=== PATIENT | female | born 1975 | race Two or more races ===

== ENCOUNTER 2017-04-27 19:21 | Emergency (ER) | payer MEDICAID ==
[2017-04-27] MEDS ORDERED: Amoxicillin/Clavulanate K 875-125 MG Tab PO ONE (20:21)
--- NOTE | 2017-04-27 21:07 | EDM.PDOC ---
ED HPI GENERAL MEDICAL PROBLEM - General Chief Complaint: ENT Problem Stated Complaint: TOOTH PAIN Time Seen by Provider: 04/27/17 20:30 Source of Information: Reports: Patient History Limitations: Reports: No Limitations - History of Present Illness INITIAL COMMENTS - FREE TEXT/NARRATIVE: Patient is a 41 year old woman who has a broken left upper wisdom tooth that is abscessed and painful up into her left maxillary sinus. She will have a dental consult in 4 days but would like to be on an antibiotic to help with her infection and discomfort. No fever or chills and no other complaints. 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, NSAIDS Left Upper Tooth/Teeth Pain Score (Numeric/FACES): 10 - Related Data Allergies Allergy/AdvReac Type Severity Reaction Status Date / Time No Known Allergies Allergy Verified 04/27/17 19:40 Home Meds: Home Meds NK [No Known Home Meds] 04/27/17 [History] 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 ED EXAM, ENT - Physical Exam Exam: See Below Exam Limited By: No Limitations General Appearance: Alert, WD/WN, No Apparent Distress Eye Exam: Bilateral Eye: Normal Fundi, Normal Inspection Ears: Normal External Exam, Normal Canal, Hearing Grossly Normal, Normal TMs Nose: Normal Inspection, Normal Mucousa, No Blood Mouth/Throat: Dental Tenderness, Dental Trauma (Left upper wisdom tooth with pain radiating into the left maxillary sinus.) Head: Atraumatic, Sinus Tenderness (Left maxillary sinus on palpitation.) Neck: Normal Inspection, Supple, Non-Tender, Full Range of Motion Respiratory/Chest: No Respiratory Distress, Lungs Clear, Normal Breath Sounds, No Accessory Muscle Use, Chest Non-Tender Cardiovascular: Normal Peripheral Pulses, Regular Rate, Rhythm, No Edema, No Gallop, No JVD, No Murmur, No Rub GI/Abdominal: Normal Bowel Sounds, Soft, Non-Tender, No Organomegaly, No Distention, No Abnormal Bruit, No Mass Back: Normal Inspection, Full Range of Motion Extremities: Normal Inspection, Normal Range of Motion, Non-Tender, No Pedal Edema, Normal Capillary Refill Neurological: Alert, Oriented, CN II-XII Intact, Normal Cognition, Normal Gait, Normal Reflexes, No Motor/Sensory Deficits Psychiatric: Normal Affect, Normal Mood Skin: Warm, Dry, Intact, Normal Color, No Rash Lymphatic: No Adenopathy Course - Vital Signs Text/Narrative:: Unremarkable ED course. She was sent home on Augmentin 875 mg po bid x 10 days, Ibuprofen 800 mg po q 6 hours and Tylenol 500 mg po q 6 hours. She will follow up with her dentist on 05-01-17. Last Recorded V/S: Last Vital Signs Temp 36.6 C 04/27/17 19:40 Pulse 97 04/27/17 19:40 Resp 18 04/27/17 19:40 BP 130/64 04/27/17 19:40 Pulse Ox 98 04/27/17 19:40 Departure - Departure Time of Disposition: 21:10 Disposition: Home, Self-Care 01 Condition: Good Clinical Impression: Dental abscess, Abscess of apex of dental root complicating chronic inflammation, Maxillary sinusitis, acute - Discharge Information Referrals: Kb Patel MD [Primary Care Provider] - Forms: ED Department Discharge
== END 2017-04-27 20:39 | disposition home or self-care (01) ==
LOC: FB.ED 19:21
DX: K04.6 Periapical abscess with sinus (principal); J01.00 Acute maxillary sinusitis, unspecified
CPT/HCPCS: 99282; A9270-GY

== ENCOUNTER 2018-03-24 16:55 | Emergency (ER) | payer MEDICAID ==
[2018-03-24] MEDS ORDERED: Lidocaine 1% 20 ML MDV INFILT ONE (16:56)
[2018-03-24] MEDS ORDERED: Diphtheria,Pertussis(Acell),Tetanus Vaccine 0.5 ML SDV IM ONE (18:44)
--- NOTE | 2018-03-24 18:50 | EDM.PDOC ---
ED HPI GENERAL MEDICAL PROBLEM - General Chief Complaint: Laceration Stated Complaint: LACERATION LEFT FINGER Time Seen by Provider: 03/24/18 18:45 Source of Information: Reports: Patient History Limitations: Reports: No Limitations - History of Present Illness INITIAL COMMENTS - FREE TEXT/NARRATIVE: Cut tip of left index finger while cutting a potato today @1100. Wound is still bleeding. Last Tetanus 9 years ago. 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 - Infectious Disease History Infectious Disease History: Reports: Chicken Pox - Past Surgical History Female Surgical History: Reports: Breast Biopsy, Section Social & Family History - Family History Family Medical History: Noncontributory - Tobacco Use Smoking Status *Q: Never Smoker Second Hand Smoke Exposure: No - Caffeine Use Caffeine Use: Reports: None - Recreational Drug Use Recreational Drug Use: No ED ROS GENERAL - Review of Systems Review Of Systems: ROS reveals no pertinent complaints other than HPI. ED EXAM, SKIN/RASH Exam: See Below Exam Limited By: No Limitations General Appearance: Alert, WD/WN, No Apparent Distress Ears: Normal External Exam Throat/Mouth: No Airway Compromise Head: Atraumatic, Normocephalic Respiratory/Chest: No Respiratory Distress Peripheral Pulses: 2+: Radial (L) Back Exam: Full Range of Motion Extremities: Normal Range of Motion, Other (1 cm laceration to tip of left index finger, wound is oozing blood) Neurological: Alert, No Motor/Sensory Deficits Psychiatric: Normal Affect, Normal Mood ED SKIN PROCEDURES - Laceration/Wound Repair Left Digit - 2nd (Index) Lac/Wound length In cm: 1 Appearance: Subcutaneous, Other (flap) Distal NVT: Neuro & Vascular Intact Anesthetic Type: Local Local Anesthesia - Lidocaine (Xylocaine): 1% Plain Local Anesthetic Volume: 1cc Skin Prep: Chlorhexidine (Hibiciens) Exploration/Debridement/Repair: No Foreign Material Found Closed with: Sutures Suture Size: 4-0 # of Sutures: 3 Suture Type: Nylon Course - Vital Signs Last Recorded V/S: Last Vital Signs Temp 36.8 C 03/24/18 16:55 Pulse 75 03/24/18 16:55 Resp 18 03/24/18 16:55 BP 113/57 L 03/24/18 16:55 Pulse Ox 97 03/24/18 16:55 - Orders/Labs/Meds Orders: Active Orders 24 hr Category Date Time Status Vaccines to be Administered [RC] PER UNIT ROUTINE Care 03/24/18 18:45 Active Meds: Medications Discontinued Medications Generic Name Dose Route Start Last Admin Trade Name Freq PRN Reason Stop Dose Admin Diphtheria/Tetanus/Acell Pertussis 0.5 ml 03/24/18 18:44 03/24/18 18:59 Adacel IM 03/24/18 18:45 0.5 ml .ONCE ONE Administration Departure - Departure Time of Disposition: 19:04 Disposition: Home, Self-Care 01 Condition: Good Clinical Impression: Laceration of finger of left hand Qualifiers: Encounter type: initial encounter Finger: index finger Damage to nail status: without damage Foreign body presence: without foreign body Qualified Code(s): S61.211A - Laceration without foreign body of left index finger without damage to nail, initial encounter - Discharge Information *PRESCRIPTION DRUG MONITORING PROGRAM REVIEWED*: No *COPY OF PRESCRIPTION DRUG MONITORING REPORT IN PATIENT ANDREW: Not Applicable Instructions: Laceration Care, Adult, Stitches, Brina, or Adhesive Wound Closure, [id number] Referrals: Kb Patel MD [Primary Care Provider] - Forms: ED Department Discharge Additional Instructions: Follow up in 7 days for suture removal, sooner with symptoms or signs of infection. Apply Bacitracin ointment daily. - My Orders Last 24 Hours: My Active Orders 03/24/18 18:45 Vaccines to be Administered [RC] PER UNIT ROUTINE - Assessment/Plan Last 24 Hours: My Active Orders 03/24/18 18:45 Vaccines to be Administered [RC] PER UNIT ROUTINE
[2018-03-24] MEDS ORDERED: Bacitracin Oint 1 GM U/D Packet TOP ONE (19:03)
== END 2018-03-24 19:15 | disposition home or self-care (01) ==
LOC: FB.ED 16:55
DX: S61.211A Laceration without foreign body of left index finger without damage to nail, initial encounter (principal); I10 Essential (primary) hypertension; Z23 Encounter for immunization; W45.8XXA Other foreign body or object entering through skin, initial encounter
CPT/HCPCS: 12001; 90471; 90715; 99282

== ENCOUNTER 2019-05-18 16:11 | Emergency (ER) | payer MEDICAID ==
[2019-05-18] MEDS ORDERED: valACYclovir 500 MG Tab PO ONE (16:12)
--- NOTE | 2019-05-18 16:26 | EDM.PDOC ---
ED HPI GENERAL MEDICAL PROBLEM - General Stated Complaint: POSSIBLE STROKE Time Seen by Provider: 05/18/19 16:23 Source of Information: Reports: Patient History Limitations: Reports: No Limitations - History of Present Illness INITIAL COMMENTS - FREE TEXT/NARRATIVE: 43-year-old female who reports was brushing her teeth last night and she protruded her tongue as she normally does and she felt a sharp pain in her right anterior neck. She does report that at that time she felt a feeling of numbness and tingling along her right side of her tongue but it was mostly the pain in her neck that she was concerned about. This morning at 8 AM she noticed the numbness along the right side of her tongue was still present and also had some numbness when she pressed her tongue against her gum on the right side as well. At approximately 10 AM today she reports she was giving her son a kiss and was puckering and her son noted that her lips "looked funny" and at that point she looked at herself in the mirror and noted that the right side of her face seemed to be more droopy her to the left side of her face. She also did not feel that seemed to move as well as the left side of her face. She had no vision problems. She had no arm or leg weakness. She had no trouble speaking. She had no pain at this point. No headache. She rated her pain as a 0/10. The symptoms persisted and they prompted her to sit to the walk-in clinic this afternoon at approximately 4 to 4:30 PM where she was seen by Saumya Cartwright NP and she was brought over to the emergency department because of concerns that she could be having a stroke. She had no weakness or dizziness. She has had no fevers or chills. She is somewhat concerned about a bump in the area where her wisdom tooth was extracted on the right lower jaw months ago and it has been present all that time. She is concerned that it could be an infection and causing her problem today. She also reports that she has been swallowing normally but she does feel somewhat flustered now and she brings up that she gets her numbers mixed up when she is looking at them but that is been going on for months or even years. There are no other associated signs or symptoms. There are no other modifying factors. 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: Other (see below) (Nothing) - Related Data Allergies Allergy/AdvReac Type Severity Reaction Status Date / Time No Known Allergies Allergy Verified 05/18/19 16:43 Home Meds: Home Meds Mineral Oil/Petrolatum Oint [Lacri-Lube S.O.P Oint] 1 applic EYERT BEDTIME #1 tube 05/18/19 [Rx] Polyvinyl Alcohol/Povidone [Artificial Tears Drops] 1 dose EYERT ASDIRECTED #1 bottle 05/18/19 [Rx] predniSONE [Prednisone] 1 dose PO DAILY 9 Days #20 tablet 05/18/19 [Rx] valACYclovir [Valtrex] 1,000 mg PO BID 9 Days #18 tab 05/18/19 [Rx] Past Medical History - Past Health History Medical/Surgical History: Denies Medical/Surgical History (No chronic medical problems. Surgical history as detailed below.) - Infectious Disease History Infectious Disease History: Reports: Chicken Pox - Past Surgical History Female Surgical History: Reports: Breast Biopsy, Section Social & Family History - Tobacco Use Smoking Status *Q: Former Smoker (Smoke for about a 1 month period when she was 20 years of age but no smoking since then.) - Caffeine Use Caffeine Use: Reports: None - Alcohol Use Alcohol Use History: No Alcohol Use Comment: "Not since I had my kids" - Living Situation & Occupation Occupation: Employed (Works part-time at [employer] [facility] - Review of Systems Review Of Systems: See Below Constitutional: Reports: No Symptoms HEENT: Reports: Ear Pain (Mild right ear pain), Other (As above; no trouble swallowing.) Respiratory: Reports: No Symptoms Cardiovascular: Reports: No Symptoms GI/Abdominal: Reports: No Symptoms : Reports: No Symptoms Musculoskeletal: Reports: No Symptoms Skin: Reports: No Symptoms Neurological: Reports: Numbness (Over right face), Paresthesia, Weakness (Over right face). Denies: Headache, Trouble Speaking, Difficulty Walking, Change in Speech Hematologic/Lymphatic: Reports: No Symptoms Immunologic: Reports: No Symptoms ED EXAM, NEURO - Physical Exam Exam: See Below Exam Limited By: No Limitations General Appearance: Alert, No Apparent Distress (Except seems somewhat anxious) , Anxious, Obese Eye Exam: Bilateral Eye: EOMI, Normal Inspection Ears: Normal External Exam, Normal Canal, Hearing Grossly Normal, Other ( Cerumen in both ear canals and TMs are not well-visualized) Nose: Normal Inspection, Normal Mucosa, No Blood Throat/Mouth: Normal Inspection, Normal Oropharynx, Normal Voice, No Airway Compromise Head Exam: Atraumatic, Normocephalic Neck: Normal Inspection, Supple, Non-Tender, Full Range of Motion Respiratory/Chest: No Respiratory Distress, Lungs Clear, Normal Breath Sounds, No Accessory Muscle Use, Chest Non-Tender Cardiovascular: Normal Peripheral Pulses, Regular Rate, Rhythm, No Edema, No Murmur GI/Abdominal: Normal Bowel Sounds, Soft, Non-Tender, No Organomegaly, No Mass Neurological: Alert, Normal Mood/Affect, Normal Dorsiflexion, Normal Plantar Flexion, Oriented x 3, Other (Partial upper and lower right facial nerve palsy. No pronator drift. No dysmetria. Normal gait. Negative Romberg. The only asymmetry to her exam is the partial right facial nerve palsy) Back Exam: Normal Inspection Extremities: Normal Inspection, No Pedal Edema, Normal Capillary Refill Skin Exam: Warm, Dry, Intact, Normal Color, No Rash Course - Vital Signs Last Recorded V/S: Last Vital Signs Temp 36.6 C 05/18/19 16:11 Pulse 81 05/18/19 16:11 Resp 18 05/18/19 16:11 BP 125/75 05/18/19 16:11 Pulse Ox 98 05/18/19 16:11 - Orders/Labs/Meds Orders: Active Orders 24 hr Category Date Time Status Mineral Oil/Petrolatum Oint [Lacri-Lube S.O.P Oint] Med 05/18/19 21:00 Active 1 gm EYERT BEDTIME Medication Orders Mineral Oil/White Petrolatum (Lacri-Lube S.O.P Oint) 1 gm EYERT BEDTIME TRANG Meds: Medications Generic Name Dose Route Start Last Admin Trade Name Freq PRN Reason Stop Dose Admin Mineral Oil/White Petrolatum 1 gm 05/18/19 21:00 Lacri-Lube S.O.P Oint EYERT BEDTIME TRANG Discontinued Medications Generic Name Dose Route Start Last Admin Trade Name Danny PACHECO Reason Stop Dose Admin Prednisone 60 mg 05/18/19 16:50 05/18/19 17:07 Prednisone PO 05/18/19 16:51 60 mg ONETIME ONE Administration Valacyclovir HCl 1,000 mg 05/18/19 16:50 05/18/19 17:08 Valtrex PO 05/18/19 16:51 1,000 mg ONETIME ONE Administration Valacyclovir HCl 1,000 mg 05/18/19 16:52 05/18/19 17:12 Valtrex PO 05/18/19 16:53 Not Given ONETIME ONE - Re-Assessments/Exams Free Text/Narrative Re-Assessment/Exam: 05/18/19 16:45: Patient with partial right facial nerve palsy. She has both upper and lower involvement. She has no other neurologic deficits. She has no evidence of a stroke but does appear to have a right-sided Melendez's palsy. No further workup is indicated at this point. I will place the patient on Valtrex for a ten-day course and also prednisone over a ten-day course with a tapering dose and I will have her follow-up with her primary provider. She may take Tylenol and ibuprofen as needed for pain. Departure - Departure Time of Disposition: 17:10 Disposition: Home, Self-Care 01 Condition: Good (Stable) Clinical Impression: Right-sided Melendez's palsy - Discharge Information Prescriptions: Mineral Oil/Petrolatum Oint [Lacri-Lube S.O.P Oint] 1 applic EYERT BEDTIME #1 tube Polyvinyl Alcohol/Povidone [Artificial Tears Drops] 1 dose EYERT ASDIRECTED #1 bottle predniSONE [Prednisone] 1 dose PO DAILY 9 Days #20 tablet valACYclovir [Valtrex] 1,000 mg PO BID 9 Days #18 tab Instructions: Melendez Palsy, Adult Referrals: PCP,None [Primary Care Provider] - Additional Instructions: You do not appear to be having a stroke. You have a right-sided Melendez's palsy or a partial paralysis of your right facial nerve. We are not completely sure what causes a Melendez's palsy but it is felt to be possibly due to a viral infection. You should apply artificial tears to your right eye during the day. You should also apply artificial tear ointment or the equivalent to your right eye at bedtime and tape the eye shut every night. Medication as prescribed (Valtrex 1000 mg, prednisone 20 mg). You may take ibuprofen or Tylenol as needed for pain. The partial paralysis of your right face may worsen, it may remain the same and be permanent or it may improve over the next month and completely go away. You should rest. You should drink plenty of fluids. Follow-up with your primary doctor as needed. Back to the emergency department for arm or leg weakness, vision problems, speech problems, vomiting or any other concerning sign or symptom. - My Orders Last 24 Hours: My Active Orders 05/18/19 21:00 Mineral Oil/Petrolatum Oint [Lacri-Lube S.O.P Oint] 1 gm EYERT BEDTIME - Assessment/Plan Last 24 Hours: My Active Orders 05/18/19 21:00 Mineral Oil/Petrolatum Oint [Lacri-Lube S.O.P Oint] 1 gm EYERT BEDTIME
[2019-05-18] MEDS: predniSONE 20 MG Tab PO ONE (17:07)
[2019-05-18] MEDS: valACYclovir 500 MG Tab PO ONE ×2 (17:08→17:12)
[2019-05-18] MEDS: Mineral Oil/Petrolatum Ophth Oint 3.5 GM Tube EYERT SCH (17:28)
== END 2019-05-18 17:38 | disposition home or self-care (01) ==
LOC: FB.ED 16:11
DX: G51.0 Bell's palsy (principal)
CPT/HCPCS: 82962; 99284; A9270-GY